=== PATIENT | female | born 1945 | race American Indian/Alaskan Native ===

== ENCOUNTER 2017-12-17 06:29 | Day surgery (SDC) | payer MEDICARE ==
[2017-12-17 07:05] VITALS: BMI 26.9
--- NOTE | 2017-12-17 08:27 | CP.SDSHP ---
Same Day Surgery H & P - History Proposed Procedure: Colonoscopy, high risk screening Pre-Op Diagnosis: History of colon polyps - Previous Medical/Surgical History Cardiac: Hypertension Endocrine/Metabolic: Diabetes Previous Surgical History: Hysterectomy, thyroidectomy - Allergies Allergies: Allergies PORK Allergy (Intermediate, Verified 02/20/14 13:16) RASH - Current Medications Current Medications: see reconciliation sheet - Physical Exam General Appearance: WD WN female in NAD Vital Signs: Vital Signs 12/17/17 07:12 Temperature 97.1 F L Pulse Rate 70 Respiratory 17 Rate Blood Pressure 123/68 O2 Sat by Pulse 97 Oximetry Mental Status: Alert & Oriented x3 Neuro: WNL Heart: WNL Lungs: WNL GI: WNL - {Optional Preform as Required} Abdomen: WNL - Impression Impression: Screening for colon cancer, high risk Pt. Evaluated Today:Candidate for Anesthesia & Procedure: Yes - Date & Time Date: 12/17/17 Time: 08:27 Short Stay Discharge - Short Stay Discharge Admitting Diagnosis/Reason for Visit: PERSONAL HISTORY OF COLON POLYPS Disposition: HOME/ ROUTINE
[2017-12-17] MEDS ORDERED: Lactated Ringer's 1,000 ML IV ONE ×2 (08:29)
[2017-12-17] MEDS ORDERED: Propofol 10 mg/ml Inj (20 ML) ONE (08:30)
[2017-12-17 09:43] VITALS: TEMP 97
[2017-12-17 09:44] VITALS: RESP 18; O2SAT 100
[2017-12-17 10:08] VITALS: BP 140/70; PULSE 62
== END 2017-12-17 10:05 | disposition home or self-care (01) ==
LOC: C.ENDO 06:29
PROVIDERS: ATTEND Internal Medicine Gastroenterology
DX: Z12.11 Encounter for screening for malignant neoplasm of colon (principal); Z86.010 Personal history of colon polyps; E11.9 Type 2 diabetes mellitus without complications; I10 Essential (primary) hypertension; K64.0 First degree hemorrhoids; K57.30 Diverticulosis of large intestine without perforation or abscess without bleeding
CPT/HCPCS: 82948; G0105; J2704; J7120

== ENCOUNTER 2018-10-25 12:41 | Outpatient (CLI) | payer MEDICARE | END 2018-10-25 12:42 | disposition home or self-care (01) | LOC: C.MAMMO 12:41 | DX: Z12.31 Encounter for screening mammogram for malignant neoplasm of breast (principal) ==